=== PATIENT | female | born 1995 | race Caucasian/White ===

== ENCOUNTER 2018-03-28 17:57 | Emergency (ER) | payer OTHER ==
[2018-03-28] MEDS: LORAZEPAM 1 MG TAB PO (18:51)
[2018-03-28] MEDS: LIDOCAINE/MYLANTA 40 ML BTL PO (18:51)
[2018-03-28] MEDS: FAMOTIDINE 20 MG TAB PO (19:40)
[2018-03-28] MEDS: ONDANSETRON (ODT) 4 MG TAB ODT (19:55)
== END 2018-03-28 19:57 | disposition home or self-care (01) ==
LOC: FTE 17:57
DX: R10.13 Epigastric pain (principal); J45.909 Unspecified asthma, uncomplicated; E66.9 Obesity, unspecified; Z68.38 Body mass index [BMI] 38.0-38.9, adult
CPT/HCPCS: 71045; 93005; 99284-25